=== PATIENT | female | born 1940 | race Caucasian/White ===

== ENCOUNTER 2017-04-03 12:46 | Inpatient (IN) | payer MEDICARE ==
[~2017-04-03] VITALS: Ht 152.4 cm; Wt 80.0 kg
[~2017-04-03 12:46] MED LIST changes: -ADJUSTABLE COMM1 MIS; -ASPI325T PO; -ATEN1TAB75 PO; -ENOX30P SQ; -ENOX40P SQ; -LASI20TA PO; -LORTA5 PO; -OMEP20TA39 PO; -POTA10TA2 PO; -TAB-TAB PO; -VITD400 PO; -Z.0.COMMODE-3:1; -Z.0.WALKERFRONT
--- NOTE | 2017-04-10 15:55 | MH ---
cc: KRISTEN CORONA M.D. DATE OF ADMISSION: 04/11/2017 DATE OF 1940 ADMISSION DIAGNOSIS Loose left total hip. CHIEF COMPLAINT Severe pain left hip. PROPOSED SURGERY: Revision total hip replacement arthroplasty with removal and replacement of the femoral implant, probably change of the acetabular insert. There is possibility of insertion of a PROSTALAC implant if infection is found. ALLERGIES PENICILLIN. ATIVAN CLINDAMYCIN PERSONAL HISTORY She is retired. She is nonsmoker. PAST HISTORY History of high blood pressure, anxiety, arthritis and head trauma. MEDICATIONS: 1. Allopurinol 2. Losartan 3. Atenolol 4. Fenofibrate. 5. Furosemide. 6. Potassium. 7. Tramadol. 8. Vitamins and supplements. PAST SURGERIES Cholecystectomy. Total left hip replacement arthroplasty 2013 at [facility]. PRESENT HISTORY. She has had increasing pain left hip ever since the primary surgery in 2013. There was a complication at that time of a perioperative femoral fracture which is fixated by two cables. The patient is followed by a surgeon, Dr. Jain, and was told everything looks okay on x-rays and tests and, therefore, she sought medical attention by the undersigned. When she was evaluated on March 15, 2017, it was obvious that she has a loose femoral stem contributing to the pain and, therefore, further tests in the form of a CT scan was ordered which confirms this finding. LABORATORY STUDIES: Show that she has a normal sedimentation rate but mildly increased CRP. The patient is now being admitted for revision of total hip replacement arthroplasty for revision of the femoral stem, possible changes of the acetabular liner to a 10 degree liner and possible introduction of cemented PROSTALAC if there is obvious significant infection. Alternative of one-stage exchange if it seems like a low grade infection, followed by IV antibiotics for several weeks also discussed. Potential problems such as infection, dislocation, fractures, phlebitis, blood clot blood loss, limb length discrepancy and possible persistent pain and discomfort discussed. Informed consent has been obtained. No guarantees made. It has been explained to her and her clearly that this surgery will be done through a lateral incision, a posterior approach. Previous surgery was done through an anterior approach. The patient is significantly overweight with a large pendulous abdomen and also the difficulty of doing revision through an anterior approach discussed. Informed consent obtained. No guarantees made. PHYSICAL EXAMINATION: The physical examination reveals a very anxious, apprehensive white female who starts crying at the least amount of stress, who limps on the left leg. Range of motion left hip is painful. Left hip area, however, does not show any swelling, induration, redness or tenderness. There is a well-healed anterior scar. Left foot has normal pedal pulses and she moves her toes well. Head: Normocephalic. Pupils react to light. Face symmetrical. Heart: Regular rhythm, no murmurs. Lungs: Clear to auscultation. Abdomen: Soft, supple. Preoperative laboratory workup is satisfactory. Medical clearance has been obtained. Preoperative instructions including infection, prevention protocol with Hibiclens wash, etc., and instructions in medications were all given. MD KING Claire/PONCE /1:46 PM /3:24 PM
[2017-04-11 09:00] VITALS: BP 172/73; PULSE 49; RESP 16; TEMP 98.3; O2SAT 95
[2017-04-11] MEDS ORDERED: LACTATED RINGER'S 1000 ML IV PRN (09:00)
[2017-04-11] MEDS ORDERED: POVIDONE IODINE 5% (ANTISEPSIS KIT) 4 APPLICATIONS EACH NARE PRN (09:00)
[2017-04-11] MEDS ORDERED: INSULIN HUMAN REGULAR 1,000 UNITS/10 ML VIAL SQ PRN (09:00)
[2017-04-11] MEDS ORDERED: METOPROLOL TARTRATE 25 MG TAB PO PRN (09:00)
[2017-04-11] MEDS ORDERED: CHLORHEXIDINE GLUCONATE 2 % 1 PACK (2 CLOTHS) TOPICAL PRN (09:00)
[2017-04-11] MEDS ORDERED: TRANEXAMIC ACID IV SCH ×3 (09:00→15:00)
[2017-04-11] MEDS ORDERED: POVIDONE IODINE 7.5% SCRUB 118 ML BOTTLE TOPICAL SCH (09:00)
[2017-04-11] MEDS ORDERED: SODIUM CHLORID 0.9% 500 ML IV PRN (09:00)
[2017-04-11] MEDS ORDERED: SODIUM CHLORIDE 0.9% IV SCH ×3 (09:00→15:00)
[2017-04-11] MEDS ORDERED: ROPIVACAINE PERI-ARTICULAR INJECTION. P-ARTICULR SCH ×5 (09:00)
[2017-04-11] MEDS ORDERED: VITD400 PO (09:24)
[2017-04-11] MEDS ORDERED: POTA10TA2 PO (09:24)
[2017-04-11] MEDS ORDERED: GENTAMICIN SULFATE 80 MG/2 ML VIAL ONE (09:52)
[2017-04-11] MEDS ORDERED: MIDAZOLAM HCL 2 MG/2 ML VIAL ONE (11:07)
[2017-04-11] MEDS ORDERED: FAMOTIDINE 20 MG/2 ML VIAL ONE (11:08)
[2017-04-11] MEDS ORDERED: VANCOMYCIN HCL 1000 MG VIAL ONE (11:17)
[2017-04-11] MEDS ORDERED: ceFAZolin 2 GM PREMIX 50 ML ONE (11:50)
[2017-04-11] MEDS ORDERED: SODIUM CHLOR 0.9% 250 ML INJ 250 ML IV ONE (12:00)
[2017-04-11] MEDS ORDERED: ePHEDrine/NS 25 MG/5 ML SYR IV ONE (12:00)
[2017-04-11] MEDS ORDERED: PROPOFOL 200 MG/20 ML AMP IV ONE (12:00)
[2017-04-11] MEDS ORDERED: PHENYLEPH/NS 1000 MCG/10 ML SYR IV ONE (12:00)
[2017-04-11] MEDS ORDERED: NORMOSOL R INJ 2,000 ML IV ONE (12:00)
[2017-04-11] MEDS ORDERED: LACTATED RINGER'S 1000 ML INJ 1,000 ML IV ONE (12:00)
[2017-04-11] MEDS ORDERED: NEOSTIGMINE 3 MG/3 ML SYR IV ONE (12:00)
[2017-04-11] MEDS ORDERED: ONDANSETRON HCL 4 MG/2 ML VIAL IV PUSH ONE (12:00)
[2017-04-11] MEDS ORDERED: ACETAMINOPHEN 1000 MG/100 ML VIAL IV ONE (14:24)
[2017-04-11] MEDS ORDERED: Post-op Orders (for Pharmacy) MISC XX ONE (15:00)
[2017-04-11] MEDS ORDERED: ACETAMINOPHEN/HYDROcodone 325 MG/5 MG TAB PO PRN ×2 (15:00)
[2017-04-11] MEDS ORDERED: diphenhydrAMINE HCL 50 MG/ML VIAL IV PRN (15:00)
[2017-04-11] MEDS ORDERED: MORPHINE SULFATE 30 MG/30 ML PCA IV SCH (15:00)
[2017-04-11] MEDS ORDERED: NALOXONE HCL 0.4 MG/ML AMP IV PRN (15:00)
[2017-04-11] MEDS ORDERED: TEMAZEPAM 15 MG CAP PO PRN (15:00)
[2017-04-11] MEDS ORDERED: ONDANSETRON HCL 4 MG/2 ML VIAL IVP PRN (15:00)
[2017-04-11] MEDS ORDERED: SODIUM CHLORIDE 0.9% FLUSH 5 ML FLUSH IVF PRN (15:00)
[2017-04-11] MEDS ORDERED: ENOX30P SQ (15:03)
[2017-04-11] MEDS ORDERED: HYDR-3516 PO (15:03)
--- NOTE | 2017-04-11 15:05 | HHI.FF ---
Face to Face Verification Diagnosis: (1) Status post left hip replacement (2) HTN (hypertension) (3) Hx of breast cancer (4) GERD (gastroesophageal reflux disease) Physical Therapy Gait training Hip: Total hip, Protocol: Left, Abduction pillow while in bed Left LE Weight Bearing: WB as tolerated Nursing Nursing: Jayashree teaching, Dressing changes Dressing Changes: Daily dressing change, Coverderm/Primapore I have seen patient Mahsa Day on 04/11/17. My clinical findings support the need for the requested home health care services because: Limited ability to care for self Injectable med education/admin I certify that my clinical findings support that this patient is homebound because: Unsafe to leave home unassisted Unable to use public transportation Fortino Gutiérrez MD Apr 11, 2017 15:05
[2017-04-11] MEDS ORDERED: ADJUSTABLE COMM1 MIS (15:08)
[2017-04-11] MEDS ORDERED: DO NOT ADM ANY ANTICOAGULANT DRUGS PRN (15:34)
[2017-04-11] MEDS: SODIUM CHLOR 0.9% 1000 ML INJ 1,000 ML IV SCH (15:45)
[2017-04-11] MEDS ORDERED: fentaNYL CITRATE 250 MCG/5 ML AMP ONE (15:47)
--- NOTE | 2017-04-11 15:49 | RADRPT ---
EXAM DATE/TIME: 04/11/2017 14:24 [facility] COMPARISON: No previous studies available for comparison. INDICATIONS : Total left hip revision. MEDICAL HISTORY : None. SURGICAL HISTORY : Total left hip replacement. ENCOUNTER: Initial ACUITY: 1 day PAIN SCORE: Non-responsive. LOCATION: Left hip. FINDINGS: The patient is status post a total hip arthroplasty with a bipolar prosthesis. Prosthesis is well-sea jacquelin. Alignment is anatomic. A fracture is not appreciated. CONCLUSION: Anatomic alignment. Delbert Valentine MD FACR Board Certified Radiologist. This report was verified electronically.
--- NOTE | 2017-04-11 16:03 | MP ---
cc: KRISTEN GUTIÉRREZ DATE OF OPERATION 04/11/2017 PREOPERATIVE DIAGNOSIS Loose total hip (femoral stem). POSTOPERATIVE DIAGNOSIS Loose total hip (femoral stem). OPERATIVE PROCEDURE Revision total hip replacement arthroplasty, left hip using the following components: We changed the acetabular insert from a flat face to a 10 degrees +4. Femoral implant change from a 8.5 Corail Stem to a 10 mm porous coated Erica stem. Head: 32 mm diameter ceramic, -[address] Gutiérrez ANESTHESIA General. TECHNIQUE After induction of general anesthesia the patient placed in left lateral position supported Biomet hip positioners. Care had to be taken with this patient because of a large amount of fat around her abdomen. Lateral position was obtained. Bony promises were protected. Left hip and lower extremity thoroughly prepped with alcohol and ChloraPrep and draped in routine fashion. Standard lateral incision was made, centered on the greater trochanter, deepened through the thick subcutaneous tissue. Fascia incised in line of skin incision. Charnley retractor introduced. Dissection carried out posteriorly and hip was internally rotated and the scarred external rotators of the capsule incised in an inverted L-shaped fashion with a vertical limb of the L along the intertrochanteric line and this tissue held with #2 Vicryl sutures. There was only serous fluid in the joint. Tissue obtained from inside the joint was sent, two for frozen section and two for microbiology including Gram stain and culture aerobic, anaerobic, AFB and fungal. Both the Gram stain and the frozen section did not show indication of any acute inflammation. No bacteria on the Gram stain. Debridement was carried out. A Steinmann pin was introduced in the bone above the acetabulum with the pin vertical to the floor of the operating table and then bent at 90 degrees to measure length and offset on a predetermined ketty on the greater trochanter. Hip was dislocated now. Debridement carried around the femoral neck. The femur was obviously loose and it was extracted without difficulty after the head was removed. We now proceeded to look at the acetabulum and the debridement carried out there to get good visualization. Being that we now doing a posterior approach and she had previous anterior approach and probably not have too much anteversion of the femoral component, I decided to put a 10 degrees +4 polyethylene insert with the buildup superior-posterior. This was impacted in place without difficulty. Attention were now directed to the femur where the femoral canal was sounded and we can see that there is a pedestal of hard bone at the area where the implant ended and great care had to be taken to open this area because a standard canal openers will not work here. The intramedullary drills from the Lesley set was then used to open up this scaffolding and then a canal finder was placed but the canal is still quite tight. A ball-tipped guidewire was then introduced into the supracondylar area. Fluoroscopic imaging was carried out in AP and lateral views which showed the guidewire to be well contained in the medullary canal. Sequential reaming was now carried out with flexible reamers starting with 8 mm. Even at 10 mm started to hear cortical chatter. We proceeded to 10.5 mm but it seemed too dangerous to try and ream it beyond that. Therefore, we have to rule out using the modular revision systems of either company ([employer] and [employer]). We therefore have to use a one-piece system. I initially tried to broach the proximal stem for the Corail revision stem. A 10 mm broach went in nicely but the 10 mm trial had difficulty getting in because of the cylindrical, ___ distal stem. Therefore, it was decided to use the Erica system of the [employer] company and we broached to 10 mm starting with 8 and it was nice and tight with about 10 degrees anteversion. Trial reduction was now carried out with a -6 neck. There is excellent stability but we need more leg length, offset is good. Hip was dislocated and impaction bone grafting of the femoral canal was carried out with cancellus chips with the use of a broach and then the 10 mm Erica stem was placed impacted in place getting excellent fit. The stem was about 6-7 mm shy of bottoming out. We did a trial reduction with a -6 head and there is good tightness but there still seemed to be some shortening of the leg compared to measurement prior to dislocation. But I pulled out the removed stem and head from the back table and compared the lengths and it appears just about identical. Therefore hip was dislocated and we put a -3 ceramic head 32 mm diameter and then reduced the hip getting good tightness, excellent stability and satisfactory leg lengths. The wound was irrigated with saline solution followed by reattachment of the posterior capsule and short external rotators to posterior margin of greater trochanter with #2 FiberWire. Fascia closed with #2 quill, subcutaneous tissue with 2-0 Vicryl and skin with 3-0 subcuticular quill and Steri-Strips. Dressing applied with Xeroform, 4x4s, ABD, Medipore tape. Abduction pillow applied. The patient transferred to recovery room in satisfactory condition. A mixture of ropivacaine, clonidine, epinephrine and Toradol was injected into the muscular tissue and subcutaneous tissue on either side of the incision for pain relief. The patient tolerated the procedure well. TRANSFUSIONS AND COMPLICATIONS None. POSTOPERATIVE CONDITION Satisfactory. PROGNOSIS Guarded to good. MD KING Claire/ANGELLA /3:12 PM /3:41 PM
[2017-04-11] MEDS ORDERED: *morphine SULFATE 8 MG/ML PERIprocedure ONLY ONE ×3 (16:26→16:58)
[2017-04-11] MEDS ORDERED: KETOROLAC TROMETHAMINE 30 MG/ML (IVP) VIAL ONE (16:37)
--- NOTE | 2017-04-11 16:53 | RADRPT ---
EXAM DATE/TIME: 04/11/2017 15:43 [facility] COMPARISON: HIP LEFT AP ONLY WO AP PELVIS, April 11, 2017, 14:24. INDICATIONS : Status post left hip ORIF. MEDICAL HISTORY : None. SURGICAL HISTORY : None. ENCOUNTER: Subsequent ACUITY: 1 day PAIN SCORE: Non-responsive. LOCATION: Left Hip FINDINGS: The patient is post left hip arthroplasty. Orthopedic hardware is in excellent position. Alignment is good. CONCLUSION: 1. Arthroplasty hardware in good position. Sterling Valentine MD on April 11, 2017 at 16:51 Board Certified Radiologist. This report was verified electronically.
[2017-04-11] MEDS: ceFAZolin 2 GM PREMIX 50 ML IV SCH (17:45)
[2017-04-11 20:00] VITALS: BP 147/79; PULSE 75; RESP 20; TEMP 96.1; O2SAT 98
[2017-04-11 20:24] VITALS: O2SAT 98
[2017-04-11] MEDS: KETOROLAC TROMETHAMINE 30 MG/ML (IVP) VIAL IVP SCH (20:59)
[2017-04-11] MEDS: SODIUM CHLORIDE 0.9% FLUSH 5 ML FLUSH IVF SCH (21:00)
[2017-04-11] MEDS: PCA - TOTAL MG MORPHINE DELIVERED PER SHIFT SCH (22:00)
[2017-04-12] VITALS (7 sets, daily range): BP systolic 125–159; BP diastolic 48–68; PULSE 61–89; RESP 16–22; TEMP 96.1–99; O2SAT 95–99
[2017-04-12] MEDS ORDERED: VANCOMYCIN INJ 1 GM in SODIUM CHLOR 0.9% 250 ML INJ 250 ML IV SCH (01:00)
[2017-04-12] MEDS: SODIUM CHLOR 0.9% 1000 ML INJ 1,000 ML IV SCH ×4 (01:06→21:52)
[2017-04-12] MEDS: ACETAMINOPHEN 1000 MG/100 ML VIAL IV SCH ×2 (02:18→15:14)
[2017-04-12] MEDS: ceFAZolin 2 GM PREMIX 50 ML IV SCH (05:39)
[2017-04-12] MEDS: KETOROLAC TROMETHAMINE 30 MG/ML (IVP) VIAL IVP SCH ×3 (05:39→21:51)
[2017-04-12] MEDS: PCA - TOTAL MG MORPHINE DELIVERED PER SHIFT SCH ×3 (05:39→21:52)
[2017-04-12 06:16] LABS: HEMATOCRIT 31.1 % (35.0-46.0); REVIEW FLAG FINAL
[2017-04-12 06:41] LABS: BICARBONATE 25.5 MEQ/L (21.0-32.0); POTASSIUM 4.2 MEQ/L (3.5-5.1)
--- NOTE | 2017-04-12 07:36 | PD.ORT.PN ---
Subjective Post Op Day #: 1 Pain Scale: 3 Subjective Remarks good Objective Vitals Last 72 hours Impressions Hip X-Ray 04/11/17 0000 Signed Impressions: Service Date/Time: Tuesday, April 11, 2017 15:43 - CONCLUSION: 1. Arthroplasty hardware in good position. Sterling Valentine MD Hip X-Ray 04/11/17 0000 Signed Impressions: Service Date/Time: Tuesday, April 11, 2017 14:24 - CONCLUSION: Anatomic alignment. Delbert Valentine MD Vital Signs Date Time Temp Pulse Resp B/P Pulse Ox O2 Delivery O2 Flow Rate FiO2 04/12/17 05:39 17 04/12/17 04:00 96.8 61 18 152/60 99 04/12/17 00:00 96.1 71 20 157/64 99 04/11/17 22:00 1 04/11/17 20:24 98 Nasal Cannula 2.00 04/11/17 20:00 96.1 75 20 147/79 98 04/11/17 19:44 18 04/11/17 17:30 97.6 77 15 157/72 99 Nasal Cannula 3 04/11/17 17:00 79 16 153/71 99 Nasal Cannula 3 04/11/17 16:30 73 15 148/75 97 Nasal Cannula 3 04/11/17 16:15 78 15 149/72 97 Nasal Cannula 3 04/11/17 16:00 75 16 146/70 97 Nasal Cannula 3 04/11/17 15:45 71 15 141/65 96 Nasal Cannula 3 04/11/17 15:36 97.7 76 15 117/56 95 Nasal Cannula 3 04/11/17 09:00 98.3 49 16 172/73 95 I/O 04/11/17 04/11/17 04/11/17 04/12/17 04/12/17 04/12/17 07:00 15:00 23:00 07:00 15:00 23:00 Intake Total 4264 ml 1104 ml Output Total 1775 ml 300 ml Balance 2489 ml 804 ml Intake Oral 780 ml 240 ml IV Total 884 ml 864 ml Other 2600 ml Output Urine Total 1275 ml 300 ml Estimated Blood Loss 500 ml # Bowel Movements 0 0 Result Diagram: 04/12/17 0536 04/12/17 0536 Objective Remarks A,A,and O Cheerful. Moves warm toes well. In bed ordering brekfast. Dressings dry Assessment & Plan Ortho Post Op Day #: 1 Problem List: Assessment and Plan doing well one day post op revision HARSH left DC sat with [facility] Fortino Gutiérrez MD Apr 12, 2017 07:36
[2017-04-12] MEDS: SODIUM CHLORIDE 0.9% FLUSH 5 ML FLUSH IVF SCH ×2 (09:00→21:00)
[2017-04-12] MEDS: CELECOXIB 200 MG CAP PO SCH (09:00)
[2017-04-12] MEDS: LOSARTAN 50 MG TAB PO SCH ×2 (13:00→21:52)
--- NOTE | 2017-04-12 13:14 | PD.CONS ---
HPI Service [facility] Hospitalists Consult Requested By Dr. Gutiérrez Reason for Consult Medical Mgmt Primary Care Physician Tommy Ralph MD Diagnoses: History of Present Illness Patient is a pleasant 76-year-old female with history of hypertension, chronic kidney disease stage II, history of breast cancer. Patient was admitted to the service of and underwent revision of left total hip arthroplasty. Medical team is now consult to assist with patient's stable, chronic medical issues. Review of Systems Constitutional: DENIES: Diaphoretic episodes, Fatigue, Fever, Weight gain, Weight loss, Chills, Dizziness, Change in appetite, Night Sweats Endocrine: DENIES: Heat/cold intolerance, Polydipsia, Polyuria, Polyphagia Eyes: DENIES: Blurred vision, Diplopia, Eye inflammation, Eye pain, Vision loss , Photosensitivity, Double Vision Ears, nose, mouth, throat: DENIES: Tinnitus, Hearing loss, Vertigo, Nasal discharge, Oral lesions, Throat pain, Hoarseness, Ear Pain, Running Nose, Epistaxis, Sinus Pain, Toothache, Odynophagia Respiratory: DENIES: Apneas, Cough, Snoring, Wheezing, Hemoptysis, Sputum production, Shortness of breath Cardiovascular: DENIES: Chest pain, Palpitations, Syncope, Dyspnea on Exertion , PND, Lower Extremity Edema, Orthopnea, Claudication Gastrointestinal: DENIES: Abdominal pain, Black stools, Bloody stools, BRB per rectum, Constipation, Diarrhea, GERD, Nausea, Reflux, Vomiting, Difficulty Swallowing, Anorexia Genitourinary: DENIES: Dysmenorrhea, Urinary frequency, Urinary incontinence, Urgency, Hematuria, Dysuria, Nocturia Musculoskeletal: COMPLAINS OF: Joint pain, DENIES: Muscle aches, Stiffness, Joint Swelling, Back pain, Neck pain Integumentary: DENIES: Abnormal pigmentation, Pruritus, Rash, Nail changes, Breast masses, Breast skin changes, Nipple discharge Hematologic/lymphatic: DENIES: Bruising, Lymphadenopathy Immunologic/allergic: DENIES: Eczema, Urticaria Neurologic: DENIES: Abnormal gait, Headache, Localized weakness, Paresthesias, Seizures, Speech Problems, Tremor, Poor Balance Psychiatric: DENIES: Anxiety, Confusion, Mood changes, Depression, Hallucinations, Agitation, Suicidal Ideation, Homicidal Ideation, Delusions, History of Bipolar, History of Schizophrenia Past Family Social History Past Medical History 1) hypertension 2) hyperlipidemia 3) chronic kidney disease, stage II 4) history of breast cancer - Non-infiltrating ductal carcinoma of the left breast - Lumpectomy in 1998 - Radiation therapy and tamoxifen 5) fatty liver disease 6) mitral bowel prolapse 7) thoracic spine compression fractures - T11 and T12 in 2004 - T7 in 2006 8) cervical disc disease 9) arachnoid cyst 10) lacunar CVA, noted on MRI 2005 11) colon polyp 12) diverticulosis 13) GERD 14) familial hypercalcemia 15) thyroid nodules 16) osteoarthritis 17) malignant melanoma of the back, 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 History of Axillary Lymphadenectomy 2. History of Biopsy Breast Percutaneous Needle Core 3. History of Cholecystectomy Laparoscopic 4. History of Closed Treatment Of Shoulder Dislocation With Manipulation 5. History of Complete Colonoscopy 6. History of Destruction Of Malignant Lesion 7. History of Intracaps Cataract Extract With Prosthesis Insert Right Eye 8. History of Left Breast Lumpectomy 9. History of Radiation Therapy 10. History of Shoulder Arthroscopy, Space Decompression And Acromioplasty 11. History of Surgery Of The Vitreous Of The Right Eye 12. History of Tonsillectomy With Adenoidectomy 13. History of Total Abdominal Hysterectomy Abdominal Approach 14. History of Total Hip Replacement Reported Medications Reported Meds & Active Scripts Active Hydrocodone-Acetaminophen 5-325 mg Tab 2 Tab PO Q4H PRN Lovenox Inj (Enoxaparin Sodium) 30 Mg/0.3 Ml Syr 30 Mg SQ Q24H Reported Vitamin D3 (Cholecalciferol) 400 Unit Tab 400 Units PO BID Potassium Chloride ER (Potassium Chloride) 10 Meq Tab 10 Meq PO DAILY Vitamin C (Ascorbic Acid) 1,000 Mg Tablet.er 1 Tab PO DAILY Selenium 100 Mcg Tablet 50 Mcg PO DAILY Vitamin B Complex (B-Complex Vitamins) 1 Tab 1 Tab PO DAILY Garlic 1 Mg Capsule 650 Mg PO DAILY Cranberry (Cranberry (Vaccinium Macrocarpon)) 425 Mg Cap 1 Cap PO DAILY Fish Oil 1000 mg (Canadian-3 Fatty Acids) 1 Cap Cap 2,000 Mg PO BID Tramadol (Tramadol HCl) 50 Mg Tab 50 Mg PO Q8H PRN Hydrocodone-Acetaminophen 5-325 mg Tab 1-2 Tab PO Q4H PRN Aspirin 81 (Aspirin) 81 Mg Tabdr 81 Mg PO DAILY Niacin 500 Mg Tab 1,000 Mg PO BID Multiple Vitamin 1 Tab 1 Tab PO DAILY Furosemide 20 Mg Tab 40 Mg PO DAILY Atenolol 100 Mg Tab 100 Mg PO DAILY Tricor (Fenofibrate) 145 Mg Tab 145 Mg PO DAILY Takw with food. Losartan (Losartan Potassium) 50 Mg Tab 50 Mg PO BID Allopurinol 100 Mg Tab 100 Mg PO BID Allergies: Coded Allergies: Zinc (Verified Allergy, Severe, RASH, 04/11/17) FROM ADHESIVE IN TAPE Clindamycin (Unverified Allergy, Intermediate, RASH; RESP DISTRESS, 04/11/17 ) Penicillin (Verified Allergy, Mild, RASH AND TONGUE SWELLING, 04/11/17) Ativan (Verified Adverse Reaction, Severe, RESTLESSNESS, CONFUSION,SEVERE PSYCHOSIS, 04/11/17) SEVERE PSYCHOSIS (07/28/14) Family History Noncontributory Social History - - Never a smoker - No alcohol use - No illicit street drugs Physical Exam Vital Signs Vital Signs Date Time Temp Pulse Resp B/P Pulse Ox O2 Delivery O2 Flow Rate FiO2 04/12/17 12:13 96 Nasal Cannula 2.00 04/12/17 08:00 98.3 68 18 159/48 96 04/12/17 05:39 17 04/12/17 04:00 96.8 61 18 152/60 99 04/12/17 00:00 96.1 71 20 157/64 99 04/11/17 22:00 1 04/11/17 20:24 98 Nasal Cannula 2.00 04/11/17 20:00 96.1 75 20 147/79 98 04/11/17 19:44 18 04/11/17 17:30 97.6 77 15 157/72 99 Nasal Cannula 3 04/11/17 17:00 79 16 153/71 99 Nasal Cannula 3 04/11/17 16:30 73 15 148/75 97 Nasal Cannula 3 04/11/17 16:15 78 15 149/72 97 Nasal Cannula 3 04/11/17 16:00 75 16 146/70 97 Nasal Cannula 3 04/11/17 15:45 71 15 141/65 96 Nasal Cannula 3 04/11/17 15:36 97.7 76 15 117/56 95 Nasal Cannula 3 Physical Exam GENERAL: This is a well-nourished, well-developed patient, in no apparent distress. SKIN: No rashes, ecchymoses or lesions. Cool and dry. HEAD: Atraumatic. Normocephalic. No temporal or scalp tenderness. EYES: Pupils equal round and reactive. Extraocular motions intact. No scleral icterus. No injection or drainage. ENT: Nose without bleeding, purulent drainage or septal hematoma. Throat without erythema, tonsillar hypertrophy or exudate. Uvula midline. Airway patent. NECK: Trachea midline. No JVD or lymphadenopathy. Supple, nontender, no meningeal signs. CARDIOVASCULAR: Regular rate and rhythm without murmurs, gallops, or rubs. RESPIRATORY: Clear to auscultation. Breath sounds equal bilaterally. No wheezes , rales, or rhonchi. GASTROINTESTINAL: Abdomen soft, non-tender, nondistended. No hepato-splenomegaly , or palpable masses. No guarding. MUSCULOSKELETAL: Extremities without clubbing, cyanosis, or edema. No joint tenderness, effusion, or edema noted. No calf tenderness. Negative Homans sign bilaterally. NEUROLOGICAL: Awake and alert. Cranial nerves II through XII intact. Motor and sensory grossly within normal limits. Five out of 5 muscle strength in all muscle groups. Normal speech. Laboratory Laboratory Tests Test 04/12/17 05:36 Hemoglobin 10.6 Hematocrit 31.1 Sodium Level 142 Potassium Level 4.2 Chloride Level 109 Carbon Dioxide Level 25.5 Anion Gap 8 Blood Urea Nitrogen 16 Creatinine 0.82 Estimat Glomerular Filtration 68 Rate Random Glucose 111 Calcium Level 8.3 Date/Time Procedure Status Source Growth 04/11/17 12:40 Gram Stain - Final Resulted Wound Hip 04/11/17 12:40 Wound Culture Resulted Wound Hip Pending 04/11/17 12:40 Fungal Smear Received Wound Hip Pending 04/11/17 12:40 Fungal Culture Received Wound Hip Pending 04/11/17 12:40 Acid Fast Stain Received Wound Hip Pending 04/11/17 12:40 Mycobacterial Culture Received Wound Hip Pending Result Diagram: 04/12/17 0536 04/12/17 0536 Imaging Last Impressions Hip X-Ray 04/11/17 0000 Signed Impressions: Service Date/Time: Sunday, April 11, 2017 15:43 - CONCLUSION: 1. Arthroplasty hardware in good position. Sterling Valentine MD Assessment and Plan Problem List: (1) Status post left hip replacement Status: Acute Plan: - Patient underwent revision of left total hip arthroplasty, performed by Dr. Gutiérrez 04/11/17 - Morphine [employer] - hydrocodone prn - Physical Therapy - lovenox - supportive care (2) HTN (hypertension) Status: Chronic Plan: - stable - continue losartan, atenolol (3) GERD (gastroesophageal reflux disease) Status: Acute (4) Hx of breast cancer Status: Acute Problem Qualifiers (1) HTN (hypertension): Qualified Code: I10 - Essential hypertension Mele Reynoso DO Apr 12, 2017 13:14
[2017-04-12] MEDS: FENOFIBRATE 145 MG TAB PO SCH (15:13)
[2017-04-12] MEDS: ATENOLOL 100 MG TAB PO SCH (15:14)
[2017-04-12] MEDS: ENOXAPARIN SODIUM 30 MG/0.3 ML SYRINGE SQ SCH (15:14)
[2017-04-12] MEDS: DOCUSATE SODIUM 100 MG CAP PO SCH (21:50)
[2017-04-12] MEDS: ALLOPURINOL 100 MG TAB PO SCH (21:51)
[2017-04-13] VITALS: BP 151/67; PULSE 69; RESP 22; TEMP 96.1; O2SAT 96
[2017-04-13] MEDS: ACETAMINOPHEN 1000 MG/100 ML VIAL IV SCH ×2 (03:01→14:00)
[2017-04-13 04:00] VITALS: BP 148/66; PULSE 65; RESP 18; TEMP 98.8; O2SAT 99
[2017-04-13] MEDS: KETOROLAC TROMETHAMINE 30 MG/ML (IVP) VIAL IVP SCH ×2 (05:00→13:00)
[2017-04-13] MEDS: PCA - TOTAL MG MORPHINE DELIVERED PER SHIFT SCH ×2 (06:00→14:00)
[2017-04-13] MEDS: SODIUM CHLOR 0.9% 1000 ML INJ 1,000 ML IV SCH ×2 (06:52→14:52)
[2017-04-13 08:00] VITALS: BP 147/72; PULSE 92; RESP 16; TEMP 98.9; O2SAT 96
[2017-04-13] MEDS: LOSARTAN 50 MG TAB PO SCH (08:51)
[2017-04-13] MEDS: ALLOPURINOL 100 MG TAB PO SCH (08:51)
[2017-04-13] MEDS: FENOFIBRATE 145 MG TAB PO SCH (08:51)
[2017-04-13] MEDS: ATENOLOL 100 MG TAB PO SCH (08:51)
[2017-04-13] MEDS: CELECOXIB 200 MG CAP PO SCH (08:52)
[2017-04-13] MEDS: DOCUSATE SODIUM 100 MG CAP PO SCH (08:53)
[2017-04-13] MEDS: SODIUM CHLORIDE 0.9% FLUSH 5 ML FLUSH IVF SCH (08:53)
[2017-04-13] MEDS ORDERED: POTASSIUM CHLORIDE 10 MEQ CONTROLLED RELEASE TAB PO SCH (09:00)
[2017-04-13] MEDS ORDERED: ASPIRIN EC 81 MG TABEC PO SCH (09:00)
[2017-04-13] MEDS ORDERED: FUROSEMIDE 20 MG TAB PO SCH (09:00)
--- NOTE | 2017-04-13 09:59 | PD.ORT.PN ---
Subjective Post Op Day #: 2 Pain Scale: minimal Subjective Remarks good, want to go home today Distance Walked three times to bathroom and walked halls Objective Vitals Vital Signs Date Time Temp Pulse Resp B/P Pulse Ox O2 Delivery O2 Flow Rate FiO2 04/13/17 04:00 98.8 65 18 148/66 99 04/13/17 00:00 96.1 69 22 151/67 96 04/12/17 20:00 96.9 70 22 125/68 95 04/12/17 16:00 99.0 89 16 154/51 98 04/12/17 12:13 96 Nasal Cannula 2.00 04/12/17 12:00 97.7 71 18 144/57 98 I/O 04/12/17 04/12/17 04/12/17 04/13/17 04/13/17 04/13/17 07:00 15:00 23:00 07:00 15:00 23:00 Intake Total 1104 ml 600 ml 780 ml 240 ml Output Total 300 ml Balance 804 ml 600 ml 780 ml 240 ml Intake Oral 240 ml 600 ml 780 ml 240 ml IV Total 864 ml Output Urine Total 300 ml # Voids 2 3 3 # Bowel Movements 0 0 0 2 Result Diagram: 04/12/17 0536 04/12/17 0536 Objective Remarks A,A,and O Cheerful. Moves warm toes well. OOB in chair, comfortable. Dressings dry Assessment & Plan Ortho Post Op Day #: 2 Problem List: Assessment and Plan doing well one day post op revision HARSH left DC after PT this afternoon Rxs for narco and lovenox [facility] Has apptt to seeme already Fortino Gutiérrez MD Apr 13, 2017 09:59
[2017-04-13 12:00] VITALS: BP 152/68; PULSE 60; RESP 16; TEMP 97.7; O2SAT 99
[2017-04-13] MEDS: ENOXAPARIN SODIUM 30 MG/0.3 ML SYRINGE SQ SCH (15:17)
== END 2017-04-13 15:35 | disposition home health service (06) | DRG 468 ==
LOC: HSDI 04-11 08:24 → N06A 04-11 18:09
PROVIDERS: ADMIT Orthopaedic Surgery; ATTEND Orthopaedic Surgery
PROC: 0SPB0JZ Removal of Synthetic Substitute from Left Hip Joint, Open Approach (ICD-10-PCS; 2017-04-11)
PROC: 0SRB04A Replacement of Left Hip Joint with Ceramic on Polyethylene Synthetic Substitute, Uncemented, Open Approach (ICD-10-PCS; principal; 2017-04-11 11:31)
DX: T84.031A Mechanical loosening of internal left hip prosthetic joint, initial encounter (principal); K76.0 Fatty (change of) liver, not elsewhere classified; E66.3 Overweight; Z68.34 Body mass index [BMI] 34.0-34.9, adult; I12.9 Hypertensive chronic kidney disease with stage 1 through stage 4 chronic kidney disease, or unspecified chronic kidney disease; N18.2 Chronic kidney disease, stage 2 (mild); E78.5 Hyperlipidemia, unspecified; Z85.3 Personal history of malignant neoplasm of breast; Z92.3 Personal history of irradiation; Z86.73 Personal history of transient ischemic attack (TIA), and cerebral infarction without residual deficits; Z86.010 Personal history of colon polyps; Z85.820 Personal history of malignant melanoma of skin; K21.9 Gastro-esophageal reflux disease without esophagitis
CPT/HCPCS: 73501; 73502; 76000; 80048; 85014; 85018; 86850; 86900; 86901; 86920; 87015; 87070; 87102; 87116; 87205; 87206; 88305; 88331; 94150; C1776; J0131; J0171; J0690; J0735; J1580; J1650; J1885; J2250; J2270; J2370; J2405; J2710; J2795; J3010; J3370; J7030; J7050; J7120

== ENCOUNTER → 2017-04-03 | Outpatient (CLI) | payer MEDICARE ==
[~2017-04-03] MED LIST: ADJUSTABLE COMM1 MIS; ALLO100T PO; ASCO100016 PO; ASPI-110 PO; ASPI325T PO; ATEN100T PO; ATEN1TAB75 PO; CRAN425C2 PO; ENOX30P SQ; ENOX40P SQ; FENO50TA PO; FISH100020 PO; FURO20TA PO; GARL1CAP6 PO; HYDR-3516 PO; LASI20TA PO; LORTA5 PO; LOSA50TA PO; MULTTAB67 PO; NIAC500T5 PO; OMEP20TA39 PO; POTA10TA2 PO; TAB-TAB PO; TRAM50TA PO; VITATAB11 PO; VITD400 PO; Z.0.COMMODE-3:1; Z.0.WALKERFRONT; [UNRECOGNIZED DRUG - CODE] PO
[2017-04-03 09:22] LABS: BLOOD, URINE NEG (NEG); GLUCOSE,URINE NEG (NEG); KETONE, URINE NEG (NEG); NITRITE,URINE NEG (NEG); PH, URINE 6.5 (5.0-8.5); SQUAMOUS EPITHELIAL CELL URINE <1 /hpf (0-5); URINE COLOR LIGHT-YELLOW (YELLW/STRAW)
[2017-04-03 09:24] LABS: COMMENT (UR) CATH-CULT NOT IND; CULTURE IF INDICATED CATH CULTURE NOT IND
[2017-04-03 10:44] LABS: AUTOMATED NEUTROPHIL # 5.1 TH/MM3 (1.8-7.7); BASOPHIL # 0.1 TH/MM3 (0-0.2); BASOPHIL % 0.8 % (0.0-2.0); EOSINOPHIL # 0.2 TH/MM3 (0-0.4); EOSINOPHIL % 2.8 % (0.0-4.0); HEMATOCRIT 43.2 % (35.0-46.0); HEMO FLAGS DIFF FINAL; LYMPH % 26.6 % (9.0-44.0); LYMPHOCYTE # 2.1 TH/MM3 (1.0-4.8); MEAN CELL VOLUME 87.6 FL (80.0-100.0); MEAN CORPUSCULAR HEMOGLOBIN 27.5 PG (27.0-34.0); MEAN CORPUSCULAR HGB CONC 31.4 % (32.0-36.0); MONO % 6.1 % (0.0-8.0); NEUT % 63.7 % (16.0-70.0); PLATELET COUNT 292 TH/MM3 (150-450); RED BLOOD COUNT 4.93 MIL/MM3 (4.00-5.30); RED CELL DISTRIBUTION WIDTH 14.7 % (11.6-17.2)
[2017-04-03 10:47] LABS: APTT (PATIENT) 26.1 SEC (24.3-30.1)
[2017-04-03 11:08] LABS: ALKALINE PHOSPHATASE 49 U/L (45-117); ALT (GPT) 40 U/L (10-53); AST (GOT) 26 U/L (15-37); BLOOD UREA NITROGEN 25 MG/DL (7-18); GLOMERULAR FILTRATION RATE 67 ML/MIN (>89); GLUCOSE,FASTING 98 MG/DL (74-99); POTASSIUM 4.1 MEQ/L (3.5-5.1); SODIUM (NA) 142 MEQ/L (136-145); TOTAL BILIRUBIN ADULT 0.5 MG/DL (0.2-1.0)
[2017-04-03 11:09] LABS: ANION GAP 8 MEQ/L (5-15); BICARBONATE 30.9 MEQ/L (21.0-32.0); CHLORIDE 103 MEQ/L (98-107)
--- NOTE | 2017-04-03 11:15 | RADRPT ---
EXAM DATE/TIME: 04/03/2017 10:55 [facility] COMPARISON: No previous studies available for comparison. INDICATIONS : Evaluate for pneumonia, pneumothoraz, and communicable disease. Preop for left hip revision. MEDICAL HISTORY : None. SURGICAL HISTORY : Hip arthroplasty, left. ENCOUNTER: Initial ACUITY: 1 day PAIN SCORE: 0/10 LOCATION: Bilateral chest FINDINGS: PA and lateral views of the chest demonstrate the lungs to be symmetrically aerated without evidence of mass, infiltrate or effusion. The cardiomediastinal contours are unremarkable. There is an old h ealed right rib fracture of the right eighth rib. There are surgical clips in the left axillary area. There are degenerative changes of the thoracic spine. There is some chronic wedging of T12 with dege nerative changes. CONCLUSION: No acute intrathoracic disease. Kwan Owusu MD on April 03, 2017 at 11:12 Board Certified Radiologist. This report was verified electronically.
--- NOTE | 2017-04-03 11:59 | EKG ---
Date Performed: 04/03/2017 Time Performed: 08:40:01 PTAGE: 76 years EKG: SINUS BRADYCARDIA NONSPECIFIC ANTERIOR T WAVE ABNORMALITY BORDERLINE ECG PREVIOUS TRACING : 07/28/2009 08.57 No significant change from previous tracing noted. DOCTOR: Thor Kruger Interpretating Date/Time 04/03/2017 11:58:47
== END ==
LOC: CPRE 08:15
PROVIDERS: ATTEND Orthopaedic Surgery
DX: Z01.810 Encounter for preprocedural cardiovascular examination (principal); Z01.811 Encounter for preprocedural respiratory examination; Z01.812 Encounter for preprocedural laboratory examination; Z96.60 Presence of unspecified orthopedic joint implant; Z96.642 Presence of left artificial hip joint; M79.609 Pain in unspecified limb; R94.31 Abnormal electrocardiogram [ECG] [EKG]
CPT/HCPCS: 36415; 71020; 80053; 81001; 85025; 85610; 85730; 93005

== ENCOUNTER 2017-06-06 17:28 | Emergency (ER) | payer MEDICARE ==
[~2017-06-06] VITALS: Ht 152.4 cm; Wt 75.0 kg
[~2017-06-06 17:28] MED LIST changes: +ADJUSTABLE COMM1 MIS; -ASPI-110 PO; -CRAN425C2 PO; +ENOX30P SQ; -FISH100020 PO; -GARL1CAP6 PO; +POTA10TA2 PO; +VITD400 PO; -[UNRECOGNIZED DRUG - CODE] PO
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
[2017-06-06 17:45] VITALS: BP 178/71; PULSE 58; RESP 20; TEMP 98.3; O2SAT 98
[2017-06-06] MEDS ORDERED: FURO40TA PO (18:26)
--- NOTE | 2017-06-06 18:29 | RADRPT ---
EXAM DATE/TIME: 06/06/2017 17:55 [facility] COMPARISON: No previous studies available for comparison. INDICATIONS : Left hip pain post fall. MEDICAL HISTORY : None. SURGICAL HISTORY : Left hip replacement. ENCOUNTER: Initial ACUITY: 1 day PAIN SCORE: 10/10 LOCATION: Left hip. FINDINGS: There is superior and lateral dislocation of the femoral component of the left total hip arthroplasty . The acetabular cup remains in orthotopic position. The bony acetabulum is intact. The femoral co mponent which includes 2 proximal cerclage wires, appears intact. The bony pelvic ring is grossly in tact. Small supra-acetabular cyst on the right side. CONCLUSION: Superior dislocation of the left femoral component of total hip arthroplasty. Bruce Solomon MD on June 06, 2017 at 18:26 Board Certified Radiologist. This report was verified electronically.
[2017-06-06] MEDS ORDERED: PROPOFOL 200 MG/20 ML AMP IV ONE (18:30)
[2017-06-06 18:44] VITALS: O2SAT 100
[2017-06-06 18:45] VITALS: BP 128/56; PULSE 59; RESP 20; O2SAT 100
--- NOTE | 2017-06-06 19:43 | RADRPT ---
EXAM DATE/TIME: 06/06/2017 18:44 [facility] COMPARISON: HIP LEFT (AP&LAT 2/3VWS) W AP PELVIS, June 06, 2017, 17:55. HIP LEFT AP ONLY WO AP PELVIS, April, 14:24. INDICATIONS : Status post reduction left hip. MEDICAL HISTORY : None. SURGICAL HISTORY : Left hip ORIF. ENCOUNTER: Subsequent ACUITY: 1 day PAIN SCORE: 1/10 LOCATION: Left Hip FINDINGS: A single frontal view of the left hip is performed status post reduction of femoral component of arth roplasty. The alignment appears anatomic on this frontal view. There is a bony fragment superior to the tip of the greater trochanter which measures 1 cm, probably representing a displaced fragment fr om the trochanter. CONCLUSION: 1. Status post reduction of hip dislocation. 2. Bony fragment displaced in the soft tissues superior to the greater trochanter. Bruce Solomon MD on June 06, 2017 at 19:39 Board Certified Radiologist. This report was verified electronically.
== END 2017-06-06 20:06 | disposition home or self-care (01) ==
LOC: NEPE 17:28
DX: S73.005A Unspecified dislocation of left hip, initial encounter (principal); W07.XXXA Fall from chair, initial encounter; I10 Essential (primary) hypertension; K21.9 Gastro-esophageal reflux disease without esophagitis; Z85.820 Personal history of malignant melanoma of skin; Z96.642 Presence of left artificial hip joint; Z88.0 Allergy status to penicillin
CPT/HCPCS: 27265; 73501; 73502; 99152

== ENCOUNTER 2017-09-25 11:26 | Emergency (ER) | payer MEDICARE, OTHER ==
[~2017-09-25 11:26] MED LIST changes: -ADJUSTABLE COMM1 MIS; -ASCO100016 PO; +ASCO100029 PO; -ENOX30P SQ; -FURO20TA PO; +FURO40TA PO; -HYDR-3516 PO
[2017-09-25 11:31] VITALS: BP 166/70; PULSE 66; RESP 18; TEMP 98.8; O2SAT 96
[2017-09-25 11:36] VITALS: BP 166/70; PULSE 70; RESP 18; TEMP 98.8; O2SAT 96
[2017-09-25 11:39] VITALS: O2SAT 96
[2017-09-25] MEDS ORDERED: SODIUM CHLORIDE 0.9% FLUSH 10 ML FLUSH IVF PRN (11:45)
[2017-09-25 11:55] LABS: AUTOMATED NEUTROPHIL # 5.2 TH/MM3 (1.8-7.7); BASOPHIL # 0.1 TH/MM3 (0-0.2); BASOPHIL % 0.7 % (0.0-2.0); EOSINOPHIL # 0.2 TH/MM3 (0-0.4); EOSINOPHIL % 2.8 % (0.0-4.0); HEMATOCRIT 39.1 % (35.0-46.0); HEMO FLAGS DIFF FINAL; LYMPHOCYTE # 2.2 TH/MM3 (1.0-4.8); MEAN CELL VOLUME 86.9 FL (80.0-100.0); MEAN CORPUSCULAR HEMOGLOBIN 28.6 PG (27.0-34.0); MONO % 6.8 % (0.0-8.0); NEUT % 62.7 % (16.0-70.0); PLATELET COUNT 288 TH/MM3 (150-450); RED CELL DISTRIBUTION WIDTH 15.5 % (11.6-17.2); WHITE BLOOD COUNT 8.2 TH/MM3 (4.0-11.0)
[2017-09-25 12:07] LABS: BICARBONATE 26.7 MEQ/L (21.0-32.0); POTASSIUM 3.9 MEQ/L (3.5-5.1)
--- NOTE | 2017-09-25 12:10 | RADRPT ---
EXAM DATE/TIME: 09/25/2017 11:55 [facility] COMPARISON: HIP LEFT (AP&LAT 2/3VWS) W AP PELVIS, June 06, 2017, 17:55. INDICATIONS : Fell today, pain left hip, evaluate for dislocation MEDICAL HISTORY : None. SURGICAL HISTORY : total left hip, left hip revision ENCOUNTER: Initial ACUITY: 1 day PAIN SCORE: 10/10 LOCATION: Left hip FINDINGS: Examination of the left hip was performed with AP Pelvis. The patient has had a total hip arthroplast y which has again dislocated superiorly from the acetabulum. There is no evidence of fracture, lytic or blastic lesion. CONCLUSION: The arthroplasty head is superiorly dislocated similar to the occurrence in June. Cliff Soler MD on September 25, 2017 at 12:08 Board Certified Radiologist. This report was verified electronically.
[2017-09-25] MEDS ORDERED: PROPOFOL 200 MG/20 ML AMP IV ONE (12:15)
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
[2017-09-25 13:15] VITALS: O2SAT 100
[2017-09-25 13:20] VITALS: BP 149/65; PULSE 58; RESP 18; O2SAT 99
--- NOTE | 2017-09-25 13:47 | RADRPT ---
EXAM DATE/TIME: 09/25/2017 12:21 [facility] COMPARISON: No previous studies available for comparison. INDICATIONS : Post reduction left hip MEDICAL HISTORY : hip dislocation SURGICAL HISTORY : hip replacement with revisions ENCOUNTER: Subsequent ACUITY: 1 day PAIN SCORE: 5/10 LOCATION: Left hip FINDINGS: A single frontal view of the pelvis demonstrates no evidence of fracture. The left total hip arthropl asty is in good position The bony pelvic ring is intact. Bony mineralization is normal. The soft t issues are intact. CONCLUSION: Unremarkable examination of the pelvis. The left hip total arthroplasty is now relocated. Cliff Soler MD on September 25, 2017 at 13:45 Board Certified Radiologist. This report was verified electronically.
--- NOTE | 2017-09-25 14:51 | PD ---
Physical Exam Date Seen by Provider: Sep 25, 2017 Narrative Was called over by Dr. Roberts to assist with the hip dislocation reduction well she did the conscious sedation. Please refer to my procedure note. Patient tolerated it well. Data Data Last Documented VS Orders Orders Complete Blood Count With Diff (09/25/17 11:37) Hip, Uni(Ap&Lat) W Ap Pelvis (09/25/17 11:37) Iv Access Insert/Monitor (09/25/17 11:37) Oximetry (09/25/17 11:37) Ecg Monitoring (09/25/17 11:37) Sodium Chloride 0.9% Flush (Ns Flush) (09/25/17 11:45) Basic Metabolic Panel (Bmp) (09/25/17 11:37) Propofol 200 Mg/20 Ml Inj (Diprivan 200 (09/25/17 12:15) Pelvis, Ap Only (Routine) (09/25/17 ) ^ Knee Immobilizer (09/25/17 13:23) Ed Discharge Order (09/25/17 14:22) Labs Laboratory Tests Test 09/25/17 11:40 White Blood Count 8.2 TH/MM3 Red Blood Count 4.50 MIL/MM3 Hemoglobin 12.9 GM/DL Hematocrit 39.1 % Mean Corpuscular Volume 86.9 FL Mean Corpuscular Hemoglobin 28.6 PG Mean Corpuscular Hemoglobin Concent 33.0 % Red Cell Distribution Width 15.5 % Platelet Count 288 TH/MM3 Mean Platelet Volume 8.2 FL Neutrophils (%) (Auto) 62.7 % Lymphocytes (%) (Auto) 27.0 % Monocytes (%) (Auto) 6.8 % Eosinophils (%) (Auto) 2.8 % Basophils (%) (Auto) 0.7 % Neutrophils # (Auto) 5.2 TH/MM3 Lymphocytes # (Auto) 2.2 TH/MM3 Monocytes # (Auto) 0.6 TH/MM3 Eosinophils # (Auto) 0.2 TH/MM3 Basophils # (Auto) 0.1 TH/MM3 CBC Comment DIFF FINAL Differential Comment Blood Urea Nitrogen 36 MG/DL Creatinine 0.99 MG/DL Random Glucose 116 MG/DL Calcium Level 10.6 MG/DL Sodium Level 138 MEQ/L Potassium Level 3.9 MEQ/L Chloride Level 103 MEQ/L Carbon Dioxide Level 26.7 MEQ/L Anion Gap 8 MEQ/L Estimat Glomerular Filtration Rate 54 ML/MIN [facility] Medical Record Reviewed: Yes Supervised Visit with ALAINA: No Procedures Procedure Narrative Hip dislocation reduction: The left hip was superiorly dislocated. This was reduced by Capt. Hu's technique after the patient was adequately sedated with propofol. A satisfactory clunk was heard. Both legs were equal and at this point. A knee immobilizer was applied. Patient tolerated this part of the procedure well. Diagnosis Primary Impression: Hip dislocation, left Qualified Codes: S73.005A - Unspecified dislocation of left hip, initial encounter Referrals: Fortino Gutiérrez MD call for appointment this week Tommy Ralph MD (PCP) Patient Instructions: General Instructions, Moderate Sedation (ED) Departure Forms: Tests/Procedures Additional Instruction: tylenol as needed, posterior hip precautions Disposition: 01 DISCHARGE HOME Condition: Stable Manuel Russell MD Sep 25, 2017 14:51
[2017-09-25 15:00] VITALS: BP 142/72
[2017-10-01] MEDS ORDERED: GARL100T PO ×2 (15:08)
[2017-10-01] MEDS ORDERED: SELE200T17 PO ×2 (15:08)
[2017-10-01] MEDS ORDERED: FISH100020 PO ×2 (15:08)
[2017-10-01] MEDS ORDERED: ASPI81TA23 PO ×2 (15:08)
[2017-10-01] MEDS ORDERED: CRANCAP2 PO ×2 (15:08)
== END 2017-09-25 15:22 | disposition home or self-care (01) ==
LOC: NEPE 11:26
DX: S73.005A Unspecified dislocation of left hip, initial encounter (principal); X50.1XXA Overexertion from prolonged static or awkward postures, initial encounter; Y92.000 Kitchen of unspecified non-institutional (private) residence as the place of occurrence of the external cause; F41.9 Anxiety disorder, unspecified; K21.9 Gastro-esophageal reflux disease without esophagitis; I10 Essential (primary) hypertension; M10.9 Gout, unspecified; Z79.899 Other long term (current) drug therapy; Z88.0 Allergy status to penicillin
CPT/HCPCS: 27265; 72170; 73502; 80048; 85025; 99152

== ENCOUNTER → 2017-10-01 | Outpatient (CLI) | payer MEDICARE, OTHER ==
[~2017-10-01] MED LIST changes: +ASPI81TA23 PO; +CRANCAP2 PO; +ENOX30P SQ; +FISH100020 PO; +GARL100T PO; +SELE200T17 PO
[2017-10-01 15:37] LABS: AUTOMATED NEUTROPHIL # 6.4 TH/MM3 (1.8-7.7); BASOPHIL % 0.5 % (0.0-2.0); EOSINOPHIL # 0.2 TH/MM3 (0-0.4); EOSINOPHIL % 2.3 % (0.0-4.0); HEMATOCRIT 39.4 % (35.0-46.0); HEMO FLAGS DIFF FINAL; LYMPH % 25.5 % (9.0-44.0); LYMPHOCYTE # 2.4 TH/MM3 (1.0-4.8); MEAN CELL VOLUME 86.3 FL (80.0-100.0); MEAN CORPUSCULAR HEMOGLOBIN 28.2 PG (27.0-34.0); MEAN CORPUSCULAR HGB CONC 32.7 % (32.0-36.0); MONO % 3.5 % (0.0-8.0); NEUT % 68.2 % (16.0-70.0); PLATELET COUNT 337 TH/MM3 (150-450); RED BLOOD COUNT 4.56 MIL/MM3 (4.00-5.30); RED CELL DISTRIBUTION WIDTH 15.7 % (11.6-17.2); WHITE BLOOD COUNT 9.4 TH/MM3 (4.0-11.0)
[2017-10-01 15:55] LABS: BICARBONATE 32.4 MEQ/L (21.0-32.0); POTASSIUM 3.9 MEQ/L (3.5-5.1)
[2017-10-01 16:08] LABS: WESTERGREN SEDIMENTATION RATE 14 mm/hr (0-30)
[2017-10-01 16:36] LABS: BLOOD, URINE NEG (NEG); COMMENT (UR) CATH-CULT NOT IND; CULTURE IF INDICATED CATH CULTURE NOT IND; GLUCOSE,URINE NEG (NEG); KETONE, URINE NEG (NEG); NITRITE,URINE NEG (NEG); PH, URINE 5.5 (5.0-8.5); URINE COLOR YELLOW (YELLW/STRAW)
--- NOTE | 2017-10-02 15:36 | EKG ---
Date Performed: 10/01/2017 Time Performed: 15:29:47 PTAGE: 76 years EKG: Sinus rhythm INCOMPLETE RIGHT BUNDLE BRANCH BLOCK ST DEVIATION AND MODERATE T-WAVE ABNORMALITY, CONSIDER ANTERIOR ISCHEMIA When compared to previous tracing, the patient is no longer Bradycardic. ABNORMAL ECG PREVIOUS TRACING : 04/03/2017 08.40.01 DOCTOR: Tawny Jon Interpretating Date/Time 10/02/2017 15:35:10
== END ==
LOC: CPRE 14:11
PROVIDERS: ATTEND Orthopaedic Surgery
DX: Z01.810 Encounter for preprocedural cardiovascular examination (principal); Z01.812 Encounter for preprocedural laboratory examination; R94.31 Abnormal electrocardiogram [ECG] [EKG]
CPT/HCPCS: 36415; 80048; 81001; 85025; 85652; 86140; 86850; 86900; 86901; 93005

== ENCOUNTER 2017-10-03 10:41 | Inpatient (IN) | payer MEDICARE, OTHER ==
--- NOTE | 2017-10-02 18:54 | MH ---
cc: KRISTEN CORONA DATE OF ADMISSION 10/03/2017 ADMISSION DIAGNOSIS 1. Instability left total hip. 2. Recurrent dislocation left total hip. 3. Six post revision hip replacement for a loose femoral component. PAST MEDICAL HISTORY 1. High blood pressure 2. Anxiety, 3. Arthritis 4. Head trauma. SOCIAL HISTORY She is retired. She does not smoke. ALLERGIES PENICILLIN ATIVAN CLINDAMYCIN MEDICATIONS 1. Allopurinol 2. Losartan 3. Atenolol. 4. Fenofibrate. 5. Furosemide. 6. Potassium. 7. Tramadol. 8. Vitamins and supplements. PAST SURGICAL HISTORY 1. Total hip replacement arthroplasty done by Dr. Jain in 2013 through an anterior approach. She sustained a perioperative femoral fracture necessitating fixation with cerclage wires. The patient continued to have pain postoperatively and she saw me for the first time in February or March of 2017. All the tests and x-rays were reviewed and it was concluded that there was a loose femoral component and indeed it was loose and was revised on 04/11/2017 with a Biomet Erica stem with bone allograft. The liner of the cup was changed to a 10 degree liner to prevent posterior dislocation since previous surgery done through the anterior approach. The patient complained of clicking in the hip and feeling of instability on and off. In June of this year, she sustained a dislocation of the hip which was reduced in the emergency room. The patient was instructed on prevention of dislocation and exercises, but she has continued to use a walker and sometimes cane and in a deconditioned status physically has not walked much or exercised much. She states about 2 weeks ago she fell when she got up from the toilet and got herself up and went to bed and did not feel any pain at all in this left hip but felt pain in the lower back and coccyx. A week later she was standing at the kitchen sink (this was a week ago) and turned to the refrigerator and the hip gave out and she fell sustaining dislocation and again went to [facility] emergency room where they reduced it and told her to have outpatient evaluation. It is apparent that she has instability of this hip. It is difficult to tell if it is coming out anteriorly or posteriorly because it is basically ending up superiorly. There is no malalignment of any of the components. This certainly could be and mostly likely to be impingement of the 10 degree liner on the femoral neck resulting in either anterior or posterior dislocation. The patient is being brought in for revision hip replacement with a constrained insert and possible increase in neck length. We are however prepared to revise the femoral implant if necessary with a cemented implant. The patient's canal is very small and we had to research thoroughly the previous surgery and we are fortunate enough to be able to use this Erica 10 mm device. We will check it at the time of surgery. PHYSICAL EXAMINATION An elderly white female who is moderately overweight. She walks with a walker. She has no pain in the left hip but complains of a lot of pain in the coccyx. Indeed, she has some bruising over the thoracolumbar area. X-rays of the coccyx and second done in the office yesterday were negative for any fractures. She walks full weightbearing with a walker. As always, she starts crying before she starts talking, quite melodramatic and probably also suffers from depression. She has satisfactory neurovascular status of the left foot. No edema of the left leg. Scar is well-healed over the left hip. There is still a dark purplish discoloration over area about 1 cm at the lower end of the scar (this used to be 4-5 cm in diameter). No pain on range of motion of left hip HEENT: Head normocephalic. Pupils react to light. Face symmetrical. HEART: Regular rhythm. No murmurs. LUNGS: Clear to auscultation ABDOMEN: Soft and supple. Preop work up reveals normal urinalysis and some borderline abnormalities of chemistry. CBC is good. CARDIOLOGY STUDIES EKG shows some changes. I had a [facility] superintendent operations division look at his EKG and compare it to previous EKG and he felt that there was some minor differences but nothing acute. The procedure itself and the potential risks, hazards, complications, expected results have all been discussed. Detailed informed consent documented on the office record and therefore will not be repeated. She is aware that there is no guarantee that it will not dislocate again. the risk of infection, fractures, etc. Informed consent obtained. MD KING Claire/ /6:10 PM /6:24 PM
[~2017-10-03] VITALS: Ht 160 cm; Wt 73.5 kg
[~2017-10-03 10:41] MED LIST changes: -ENOX30P SQ
[2017-10-03] MEDS ORDERED: POVIDONE IODINE 5% (ANTISEPSIS KIT) 4 APPLICATIONS EACH NARE PRN (11:45)
[2017-10-03] MEDS ORDERED: VANCOMYCIN 1250 MG/NS 250 ML (for 70-84 kg) IV SCH ×2 (11:45)
[2017-10-03] MEDS ORDERED: SODIUM CHLORID 0.9% 500 ML IV PRN (11:45)
[2017-10-03] MEDS ORDERED: CHLORHEXIDINE GLUCONATE 2 % 1 PACK (2 CLOTHS) TOPICAL PRN (11:45)
[2017-10-03] MEDS ORDERED: METOPROLOL TARTRATE 25 MG TAB PO PRN (11:45)
[2017-10-03] MEDS ORDERED: LACTATED RINGER'S 1000 ML IV PRN (11:45)
[2017-10-03] MEDS ORDERED: POVIDONE IODINE 7.5% SCRUB 118 ML BOTTLE TOPICAL SCH (11:45)
[2017-10-03] MEDS ORDERED: TRANEXAMIC ACID INJ 735 MG in SODIUM CHLORIDE 0.9% INJ 100 ML IV SCH ×2 (13:00→16:00)
[2017-10-03] MEDS ORDERED: ROPIVACAINE PERI-ARTICULAR INJECTION. P-ARTICULR SCH ×5 (13:00)
[2017-10-03] MEDS ORDERED: ceFAZolin 2 GM PREMIX 50 ML IV SCH (15:00)
[2017-10-03] MEDS ORDERED: GENTAMICIN SULFATE 80 MG/2 ML VIAL ONE (15:26)
[2017-10-03] MEDS ORDERED: NALOXONE HCL 0.4 MG/ML AMP IV PUSH PRN (17:45)
[2017-10-03] MEDS ORDERED: TRANEXAMIC ACID INJ 0 MG in SODIUM CHLORIDE 0.9% INJ 100 ML IV SCH (17:45)
[2017-10-03] MEDS ORDERED: ONDANSETRON HCL 4 MG/2 ML VIAL IVP PRN (17:45)
[2017-10-03] MEDS ORDERED: Post-op Orders (for Pharmacy) MISC XX ONE (17:45)
[2017-10-03] MEDS ORDERED: ACETAMINOPHEN/HYDROcodone 325 MG/5 MG TAB PO PRN ×2 (17:45)
[2017-10-03] MEDS ORDERED: MORPHINE SULFATE 30 MG/30 ML PCA IV SCH (17:45)
[2017-10-03] MEDS ORDERED: diphenhydrAMINE HCL 50 MG/ML VIAL IV PUSH PRN (17:45)
[2017-10-03] MEDS ORDERED: TEMAZEPAM 15 MG CAP PO PRN (17:45)
[2017-10-03] MEDS ORDERED: *morphine SULFATE 8 MG/ML PERIprocedure ONLY ONE (17:53)
[2017-10-03] MEDS ORDERED: DO NOT ADM ANY ANTICOAGULANT DRUGS PRN (18:00)
[2017-10-03] MEDS: SODIUM CHLOR 0.9% 1000 ML INJ 1,000 ML IV SCH (18:06)
[2017-10-03] MEDS ORDERED: *MEPERIDINE 25 MG INJ VIAL PERIprocedural Use ONLY ONE (18:10)
--- NOTE | 2017-10-03 18:45 | RADRPT ---
EXAM DATE/TIME: 10/03/2017 18:02 [place] COMPARISON: HIP LEFT (AP&LAT 2/3VWS) WO AP PELVIS, April 11, 2017, 15:43. INDICATIONS : Left hip post op. MEDICAL HISTORY : None. SURGICAL HISTORY : None. ENCOUNTER: Initial ACUITY: 1 day PAIN SCORE: Non-responsive. LOCATION: Left hip. FINDINGS: A two view examination of the left hip was performed. There is a left total hip arthroplasty cerclag e wires around the proximal femur securing the stem of the femoral prostheses. Interval placement of a SLICK type drain over the hip. No fracture identified. No dislocation. CONCLUSION: 1. Stable radiographic appearance of the left total hip arthroplasty as detailed above. 2. Interval placement of a SLICK type drain over the proximal femur. John Hdz MD on October 03, 2017 at 18:41 Board Certified Radiologist. This report was verified electronically.
[2017-10-03 20:25] VITALS: BP 147/60; PULSE 50; RESP 18; TEMP 97.6; O2SAT 100
[2017-10-03] MEDS: ceFAZolin 2 GM PREMIX 50 ML IV SCH (22:43)
[2017-10-03] MEDS: KETOROLAC TROMETHAMINE 30 MG/ML (IVP) VIAL IVP SCH (22:44)
[2017-10-03] MEDS: ACETAMINOPHEN 1000 MG/100 ML VIAL IV SCH (22:45)
[2017-10-03] MEDS: ALLOPURINOL 100 MG TAB PO SCH (22:45)
[2017-10-03] MEDS: LOSARTAN 50 MG TAB PO SCH (22:45)
[2017-10-03] MEDS: PCA - TOTAL MG MORPHINE DELIVERED PER SHIFT SCH (22:55)
[2017-10-04] VITALS (8 sets, daily range): BP systolic 116–155; BP diastolic 54–70; PULSE 52–72; RESP 18–23; TEMP 96.8–99; O2SAT 92–98
[2017-10-04] MEDS: SODIUM CHLOR 0.9% 1000 ML INJ 1,000 ML IV SCH ×3 (03:43→17:46)
[2017-10-04] MEDS: ceFAZolin 2 GM PREMIX 50 ML IV SCH ×2 (03:43→10:04)
[2017-10-04 05:24] LABS: REVIEW FLAG FINAL
[2017-10-04] MEDS: PCA - TOTAL MG MORPHINE DELIVERED PER SHIFT SCH ×3 (05:28→22:00)
[2017-10-04] MEDS: KETOROLAC TROMETHAMINE 30 MG/ML (IVP) VIAL IVP SCH ×4 (05:28→20:10)
--- NOTE | 2017-10-04 05:48 | MP ---
cc: KRISTEN GUTIÉRREZ DATE OF SURGERY 10/03/2017 PREOPERATIVE DIAGNOSES 1. Recurrent dislocation left total hip. 2. 5-1/2 months post revision total hip replacement left for loose femoral component. POSTOPERATIVE DIAGNOSES 1. Recurrent dislocation left total hip. 2. 5-1/2 months post revision total hip replacement left for loose femoral component. OPERATIVE PROCEDURE Revision hip replacement, left hip, using Constrained polyethylene insert, made by the [employer] and changing the head from 32 ceramic -3 to metal 28-mm standard. SURGEON Dr. Gutiérrez ANESTHESIA General. TECHNIQUE After induction of general anesthesia, the patient was placed in the left lateral position supported with Biomet hip positioners. Strict lateral position was ascertained. The left hip and left lower extremity were thoroughly prepped with alcohol and ChloraPrep and draped in routine fashion. The entire previous surgical incision was used. The surgical scar was used for the surgical incision, deepened through the subcutaneous tissue down to fascia. Limited skin flaps were raised, followed by incision of the fascia through the middle of the greater trochanter. There was serosanguineous fluid which was evacuated. This was to be expected from the recent dislocation. It was clear; it was not purulent. The dissection kept close the posterior margin of the greater trochanter and femur exposing the joint. The inflammatory or synovial tissue from around the hip joint, three pieces were removed from different areas, sent to the lab for Gram's stain and culture, aerobic and anaerobic. Once satisfactory exposure was obtained, the hip was tested. I had the hip in extension, adduction and as much external rotation as a could and it would no come out anteriorly. I had the hip in 90 degrees flexion, abduction and 60-70 degrees of internal rotation and the hip would not come out, so it was really not clear why she was dislocating. That is the reason we want to put in a Constrained insert. The polyethylene insert was pop-topped with the use of an osteotome. The cup was in good shape. The stem was in good shape. It should be noted that once we dislocated we did remove the ceramic head. The acetabulum was cleaned and then a Constrained insert with 28-mm inside diameter was impacted in place. We made sure it bottomed out nicely. The constraining ring was then placed over the Kam taper of the femoral implant and then a 28-mm standard metal head was impacted in place. The plastic insert was cleaned and dried thoroughly; that is in the acetabulum. The hip was now reduced with an audible and palpable pop. The constrained ring was then deployed and seems to fit very nicely. We made sure there was good circumferential deployment of the constrained ring. The hip was tested. There is no impingement in extension, external rotation and abduction. Flexion and adduction to 90 degrees flexion is okay but when we internally rotate her beyond 30 degrees there is impingement of the edge of the insert on the trunnion but in even neutral there is no impingement. This is as stable a hip as we can give her. Even this might eventually wear out over the years. The wound was irrigated saline solution followed by closure of the fascia with #2 Quill, the subcutaneous tissue with 2-0 Vicryl, the skin with 3-0 subcuticular Quill and Steri-Strips. A Hemovac drain was placed in the depths of the incision. Dressing to be applied with long-term superabsorbent dressing over the incision and a Tegaderm on the drain site. The patient was transferred to the recovery room in satisfactory condition with an abduction pillow. The patient tolerated the procedure well. TRANSFUSIONS AND COMPLICATIONS None. POSTOPERATIVE CONDITION Satisfactory. PROGNOSIS Guarded because of her low activity level and lack of muscle tone, etc. MD KING Claire/JANELL /5:22 PM /5:18 AM
[2017-10-04 06:04] LABS: BICARBONATE 27.4 MEQ/L (21.0-32.0); POTASSIUM 4.1 MEQ/L (3.5-5.1)
--- NOTE | 2017-10-04 07:27 | PD.ORT.PN ---
Subjective Post Op Day #: 1 Pain Scale: 2 Subjective Remarks scared Objective Vitals Last 72 hours Impressions Hip X-Ray 10/03/17 0000 Signed Impressions: Service Date/Time: Tuesday, October 03, 2017 18:02 - CONCLUSION: 1. Stable radiographic appearance of the left total hip arthroplasty as detailed above. 2. Interval placement of a SLICK type drain over the proximal femur. John Hdz MD Microbiology Date/Time Source Procedure Growth Status 10/03/17 15:55 Wound Hip Fungal Smear Pending Received 10/03/17 15:55 Wound Hip Fungal Culture Pending Received Vital Signs Date Time Temp Pulse Resp B/P (MAP) Pulse Ox O2 Delivery O2 Flow Rate FiO2 10/04/17 05:28 18 10/04/17 04:30 97.7 58 18 123/60 (81) 97 10/04/17 00:25 97.9 57 18 118/54 (75) 96 10/03/17 22:55 18 10/03/17 20:25 97.6 50 18 147/60 (89) 100 10/03/17 19:00 97.5 54 23 169/72 (104) 98 Nasal Cannula 2 10/03/17 18:45 55 20 162/61 (94) 98 Nasal Cannula 2 10/03/17 18:30 53 20 149/70 (96) 95 Nasal Cannula 2 10/03/17 18:15 58 17 161/70 (100) 99 Nasal Cannula 2 10/03/17 18:06 20 10/03/17 18:00 52 19 153/66 (95) 100 Nasal Cannula 2 10/03/17 17:45 55 24 146/65 (92) 100 Nasal Cannula 2 10/03/17 17:42 97.4 55 24 158/66 (96) 100 Nasal Cannula 2 I/O 10/03/17 10/03/17 10/03/17 10/04/17 10/04/17 10/04/17 07:00 15:00 23:00 07:00 15:00 23:00 Intake Total 1922 ml 1067 ml Output Total 290 ml 40 ml Balance 1632 ml 1027 ml Intake Oral 315 ml 240 ml IV Total 107 ml 827 ml Other 1500 ml Output Drainage Total 40 ml 40 ml Estimated Blood Loss 250 ml # Voids 1 1 0 # Bowel Movements 0 0 Result Diagram: 10/04/17 0453 10/04/17 0453 Objective Remarks comfortable in bed drain out and dresings dry. Moves toes well up and down Abdn pillow on Assessment & Plan Ortho Post Op Day #: 1 Problem List: Assessment and Plan POD 1 revision with constrained insert and longer neck DC with HHC tomorrow Fortino Gutiérrez MD Oct 04, 2017 07:27
[2017-10-04] MEDS ORDERED: TRAM50TA PO (07:32)
--- NOTE | 2017-10-04 07:34 | HHI.FF ---
Face to Face Verification Diagnosis: (1) Status post left hip replacement (2) Hip dislocation, left (3) HTN (hypertension) Physical Therapy Gait training Hip: Total hip, Protocol: Left, Posterior hip precautions Left LE Weight Bearing: WB as tolerated Nursing Nursing: Jayashree owusu I have seen patient Mahsa Day on 10/04/17. My clinical findings support the need for the requested home health care services because: Ltd mobility - disease progression Limited ability to care for self High risk of falls Injectable med education/admin I certify that my clinical findings support that this patient is homebound because: Post-op weakness Unable to use public transportation Fortino Gutiérrez MD Oct 04, 2017 07:34
[2017-10-04] MEDS ORDERED: VANCOMYCIN INJ 1,500 MG in SODIUM CHLOR 0.9% 250 ML INJ 250 ML IV ONE (08:00)
[2017-10-04] MEDS: POTASSIUM CHLORIDE 10 MEQ CONTROLLED RELEASE TAB PO SCH (09:00)
[2017-10-04] MEDS: ALLOPURINOL 100 MG TAB PO SCH ×2 (09:00→20:08)
[2017-10-04] MEDS ORDERED: VITAMIN B COMPLEX/VIT C TAB PO SCH (09:00)
[2017-10-04] MEDS: NIACIN 500 MG EXTENDED RELEASE TAB PO SCH (09:00)
[2017-10-04] MEDS: ATENOLOL 100 MG TAB PO SCH (10:01)
[2017-10-04] MEDS: FUROSEMIDE 40 MG TAB PO SCH (10:02)
[2017-10-04] MEDS: FENOFIBRATE 145 MG TAB PO SCH (10:03)
[2017-10-04] MEDS: LOSARTAN 50 MG TAB PO SCH ×2 (10:03→20:08)
[2017-10-04] MEDS: ASCORBIC ACID 500 MG TAB PO SCH (10:04)
[2017-10-04] MEDS: ACETAMINOPHEN 1000 MG/100 ML VIAL IV SCH ×2 (10:05→20:09)
--- NOTE | 2017-10-04 10:46 | PD.CONS ---
HPI Service [facility] Hospitalists Consult Requested By Dr. Gutiérrez Reason for Consult Medical Management Primary Care Physician Tommy Ralph MD Diagnoses: History of Present Illness Mrs. Day is a pleasant 76 y/o female with HTN, hyperlipidemia, GERD, osteoarthritis who previously had a left total hip replacement in 2013. She underwent revision of left total hip arthroplasty on 04/11/[address] Gutiérrez. Pt has continued to have instability on and off of the left hip and suffered a dislocation in June 2017 and again a few weeks ago. Pt was admitted to [facility] on 10/03/17 and underwent revision hip replacement of the left hip with Dr. Gutiérrez. [facility] Hospitalist team was consulted to help with medical management. Pt is seen post-operatively. She is generally without any specific complaints. Pt reports that this morning she noted a slight rash on her upper chest only. She does have allergy to PCN and was given three doses of Ancef overnight. She feels that this is improving since she noticed it this morning. Pt denies any SOB, swelling, palpitations, cough, chest pain, nausea/vomiting, or abd pain. Review of Systems Constitutional: DENIES: Fever, Chills Eyes: DENIES: Vision loss Ears, nose, mouth, throat: DENIES: Hearing loss Respiratory: DENIES: Cough, Shortness of breath Cardiovascular: DENIES: Chest pain, Palpitations Gastrointestinal: DENIES: Abdominal pain, Constipation, Diarrhea, Nausea, Vomiting Genitourinary: DENIES: Hematuria, Dysuria Musculoskeletal: COMPLAINS OF: Joint pain, DENIES: Back pain, Neck pain Integumentary: DENIES: Rash Neurologic: DENIES: Headache Psychiatric: DENIES: Confusion Past Family Social History Past Medical History HTN Hyperlipidemia Hx of lacunar CVA, noted on MRI in 2005 per the outpt records GERD Fatty liver Diverticulosis Hypercalcemia, follows with Dr. 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 Gutiérrez Left total hip replacement on 07/29/[address] Jain Left first MPJ fusion with plate and screw Left Breast Lumpectomy Axillary Lymphadenectomy Breast biopsy Cholecystectomy Laparoscopic Removal of malignant lesion Cataract Extract With Prosthesis Insert Right Eye Shoulder Arthroscopy, Space Decompression And Acromioplasty Closed Treatment Of Shoulder Dislocation With Manipulation Tonsillectomy With Adenoidectomy Total Abdominal Hysterectomy, abdominal approach Reported Medications -Aspirin EC 81 Mg PO EVERY OTHER DAY -Furosemide 40 Mg PO DAILY -Potassium Chloride ER 10 Meq PO DAILY -Atenolol 100 Mg PO DAILY -Tricor 145 Mg PO DAILY -Losartan 50 Mg PO BID -Allopurinol 100 Mg PO BID Vitamin C (Ascorbic Acid) 1,000 Mg Tablet.er 1,000 Mg PO DAILY Vitamin B Complex (B-Complex Vitamins) 1 Tab 1 Tab PO EVERY OTHER DAY Niacin 500 Mg Tab 1,000 Mg PO DAILY Multiple Vitamin 1 Tab 1 Tab PO DAILY Selenium 200 Mcg Tab 50 Mcg PO DAILY Garlic 100 Mg Tablet 650 Mg PO DAILY Cranberry Urinary Comfort (Vitamins C & E) 1 Cap 1 Cap PO DAILY Fish Oil 1000 mg (Emery-3 Fatty Acids) 300 Mg-1,000 Mg Cap 2 Tab PO 12PM,5PM Allergies: Coded Allergies: zinc (Verified Allergy, Severe, RASH, 10/03/17) FROM ADHESIVE IN TAPE zinc oxide (Verified Allergy, Severe, RASH, 10/03/17) FROM ADHESIVE IN TAPE clindamycin (Verified Allergy, Intermediate, RASH; RESP DISTRESS, 10/03/17 ) penicillin G (Verified Allergy, Mild, RASH AND TONGUE SWELLING, 10/03/17) lorazepam (Verified Adverse Reaction, Severe, RESTLESSNESS, CONFUSION, SEVERE PSYCHOSIS, 10/03/17) SEVERE PSYCHOSIS (07/28/14) Family History Noncontributory Social History - - Never a smoker - No alcohol use - No illicit street drugs Physical Exam Vital Signs Vital Signs Date Time Temp Pulse Resp B/P (MAP) Pulse Ox O2 Delivery O2 Flow Rate FiO2 10/04/17 08:00 96.8 58 18 116/65 (82) 96 10/04/17 05:28 18 10/04/17 04:30 97.7 58 18 123/60 (81) 97 10/04/17 00:25 97.9 57 18 118/54 (75) 96 10/03/17 22:55 18 10/03/17 20:25 97.6 50 18 147/60 (89) 100 10/03/17 19:00 97.5 54 23 169/72 (104) 98 Nasal Cannula 2 10/03/17 18:45 55 20 162/61 (94) 98 Nasal Cannula 2 10/03/17 18:30 53 20 149/70 (96) 95 Nasal Cannula 2 10/03/17 18:15 58 17 161/70 (100) 99 Nasal Cannula 2 10/03/17 18:06 20 10/03/17 18:00 52 19 153/66 (95) 100 Nasal Cannula 2 10/03/17 17:45 55 24 146/65 (92) 100 Nasal Cannula 2 10/03/17 17:42 97.4 55 24 158/66 (96) 100 Nasal Cannula 2 Physical Exam GENERAL: This is a well-nourished, well-developed patient, in no apparent distress. HEENT: Atraumatic. Normocephalic. No temporal or scalp tenderness. No scleral icterus. Airway patent. NECK: Trachea midline, supple, nontender. CARDIO: Regular. RESP: CTA bilaterally. No wheezes, rales, or rhonchi. ABD: +BS, soft, non-tender, nondistended. EXT: Extremities without clubbing, cyanosis, or edema. NEURO: Awake and alert. Motor and sensory grossly within normal limits. Normal speech. Laboratory Laboratory Tests Test 10/04/17 04:53 Hemoglobin 10.6 Hematocrit 33.0 Blood Urea Nitrogen 20 Creatinine 0.92 Random Glucose 100 Calcium Level 9.2 Sodium Level 143 Potassium Level 4.1 Chloride Level 108 Carbon Dioxide Level 27.4 Anion Gap 8 Estimat Glomerular Filtration Rate 59 Date/Time Source Procedure Growth Status 10/03/17 15:55 Wound Hip Fungal Smear Pending Received 10/03/17 15:55 Wound Hip Fungal Culture Pending Received Result Diagram: 10/04/17 0453 10/04/17 0453 Imaging Last Impressions Hip X-Ray 10/03/17 0000 Signed Impressions: Service Date/Time: Tuesday, October 03, 2017 18:02 - CONCLUSION: 1. Stable radiographic appearance of the left total hip arthroplasty as detailed above. 2. Interval placement of a SLICK type drain over the proximal femur. John Hdz MD Assessment and Plan Problem List: (1) Status post left hip replacement ICD Codes: Z96.642 - Status post left hip replacement Status: Acute Plan: Patient is a 76 y/o female with HTN, hyperlipidemia, GERD, osteoarthritis who previously had a left total hip replacement in 2013. She underwent revision of left total hip arthroplasty on 04/11/[address] Gutiérrez. Pt has continued to have instability on and off of the left hip and suffered a dislocation in June 2017 and again a few weeks ago. Pt was admitted to [facility] on 10/03/17 and underwent revision hip replacement of the left hip with Dr. Gutiérrez. s/p Revision left total hip replacement - Post-op pain control per Ortho - IS - PT daily - Constipation precautions - Pt is planned for discharge home with HHC/PT - DVT prophylaxis with Lovenox HTN - Home meds continued - Monitor Hyperlipidemia - Home meds continued GERD - PPI (2) HTN (hypertension) ICD Codes: I10 - HTN (hypertension) Status: Chronic (3) GERD (gastroesophageal reflux disease) ICD Codes: K21.9 - GERD (gastroesophageal reflux disease) Status: Acute (4) Hx of breast cancer ICD Codes: Z85.3 - Hx of breast cancer Status: Acute Assessment and Plan Patient examined. Assessment and plan formulated with Velma Vallecillo PA-C. I agree with the above. s/p hip revision. pt had some hives on ant neck...not itching. no sob probably from the cefazolin...benadryl prn. Velma Vallecillo Oct 04, 2017 10:46 Byron Campos MD Oct 04, 2017 13:58
[2017-10-04] MEDS ORDERED: diphenhydrAMINE HCL ELIXIR 12.5 MG/5 ML CUP PO PRN (12:00)
[2017-10-04] MEDS ORDERED: ENOXAPARIN SODIUM 30 MG/0.3 ML SYRINGE SQ SCH (17:00)
[2017-10-04] MEDS: DOCUSATE SODIUM 100 MG CAP PO SCH (20:09)
[2017-10-05] VITALS: BP 135/67; PULSE 68; RESP 18; TEMP 98.8; O2SAT 98
[2017-10-05] MEDS: SODIUM CHLOR 0.9% 1000 ML INJ 1,000 ML IV SCH ×2 (02:00→08:45)
[2017-10-05 04:00] VITALS: BP 148/69; PULSE 65; RESP 16; TEMP 98.6; O2SAT 97
[2017-10-05] MEDS: KETOROLAC TROMETHAMINE 30 MG/ML (IVP) VIAL IVP SCH (04:05)
[2017-10-05] MEDS: PCA - TOTAL MG MORPHINE DELIVERED PER SHIFT SCH (05:08)
[2017-10-05 05:56] LABS: AUTOMATED NEUTROPHIL # 4.8 TH/MM3 (1.8-7.7); BASOPHIL % 0.3 % (0.0-2.0); EOSINOPHIL # 0.4 TH/MM3 (0-0.4); EOSINOPHIL % 5.3 % (0.0-4.0); HEMATOCRIT 32.9 % (35.0-46.0); HEMO FLAGS DIFF FINAL; LYMPH % 22.3 % (9.0-44.0); LYMPHOCYTE # 1.6 TH/MM3 (1.0-4.8); MEAN CELL VOLUME 88.3 FL (80.0-100.0); MEAN CORPUSCULAR HEMOGLOBIN 27.5 PG (27.0-34.0); MEAN CORPUSCULAR HGB CONC 31.1 % (32.0-36.0); MONO % 4.6 % (0.0-8.0); NEUT % 67.5 % (16.0-70.0); PLATELET COUNT 225 TH/MM3 (150-450); RED BLOOD COUNT 3.72 MIL/MM3 (4.00-5.30); RED CELL DISTRIBUTION WIDTH 15.4 % (11.6-17.2); WHITE BLOOD COUNT 7.1 TH/MM3 (4.0-11.0)
[2017-10-05 06:07] LABS: POTASSIUM 4.2 MEQ/L (3.5-5.1)
[2017-10-05] MEDS ORDERED: ENOX30P SQ (07:35)
[2017-10-05 08:00] VITALS: BP 161/70; PULSE 64; RESP 18; TEMP 97.6; O2SAT 95
[2017-10-05] MEDS: LOSARTAN 50 MG TAB PO SCH (08:41)
[2017-10-05] MEDS: FENOFIBRATE 145 MG TAB PO SCH (08:41)
[2017-10-05] MEDS: FUROSEMIDE 40 MG TAB PO SCH (08:41)
[2017-10-05] MEDS: ALLOPURINOL 100 MG TAB PO SCH (08:41)
[2017-10-05] MEDS: ATENOLOL 100 MG TAB PO SCH (08:41)
[2017-10-05] MEDS: ASCORBIC ACID 500 MG TAB PO SCH (08:41)
[2017-10-05] MEDS: DOCUSATE SODIUM 100 MG CAP PO SCH (08:41)
[2017-10-05] MEDS: ACETAMINOPHEN 1000 MG/100 ML VIAL IV SCH (08:43)
[2017-10-05] MEDS: POTASSIUM CHLORIDE 10 MEQ CONTROLLED RELEASE TAB PO SCH (08:44)
[2017-10-05] MEDS: NIACIN 500 MG EXTENDED RELEASE TAB PO SCH (08:44)
[2017-10-05 09:22] VITALS: O2SAT 95
--- NOTE | 2017-10-05 10:08 | MD ---
cc: KRISTEN CORONA ADMISSION DATE: 10/03/2017 DISCHARGE DATE: 10/05/2017 [place] Visit Search.Discharge Date ADMITTING DIAGNOSIS 1. Unstable total hip, left, (recurrent dislocation). 2. Five and a half months post revision total hip replacement left for a loose femoral component. DISCHARGE DIAGNOSIS 1. Unstable total hip, left, (recurrent dislocation). 2. Five and a half months post revision total hip replacement left for a loose femoral component. BRIEF HISTORY The history consisted of this revision followed two months later by dislocation and then again dislocation about a week ago. The patient is now brought in for this surgery after appropriate preoperative work-up. HOSPITAL COURSE She had revision hip replacement consisting of a change in the femoral component to a standard 28 mm head and the acetabular insert to a constrained insert. The patient has done well with satisfactory postoperative course and very little pain. The incision looks good. Dressing is clean and dry. Home care has been arranged. She is discharged with a prescription for tramadol 50 mg q.i.d. p.r.n. for pain. She has some hydrocodone at home to take as needed. She will have physical therapy also. She will see me in the office on October 15 for follow-up. Her postoperative lab work is all satisfactory. Postoperative x-rays look good. MD KING Claire/SONAM /7:36 AM /9:59 AM
[2017-10-05 12:00] VITALS: BP 166/70; PULSE 70; RESP 18; TEMP 96.9; O2SAT 100
== END 2017-10-05 15:19 | disposition home health service (06) | DRG 468 ==
LOC: HSDI 10:41 → N06A 19:18
PROVIDERS: ADMIT Orthopaedic Surgery; ATTEND Orthopaedic Surgery
PROC: 0SPB0JZ Removal of Synthetic Substitute from Left Hip Joint, Open Approach (ICD-10-PCS; 2017-10-03)
PROC: 0SRB0JA Replacement of Left Hip Joint with Synthetic Substitute, Uncemented, Open Approach (ICD-10-PCS; principal; 2017-10-03 15:05)
DX: M24.452 Recurrent dislocation, left hip (principal); I34.1 Nonrheumatic mitral (valve) prolapse; Z96.642 Presence of left artificial hip joint; I10 Essential (primary) hypertension; E78.5 Hyperlipidemia, unspecified; M16.12 Unilateral primary osteoarthritis, left hip; K21.9 Gastro-esophageal reflux disease without esophagitis; Z85.3 Personal history of malignant neoplasm of breast; Z85.820 Personal history of malignant melanoma of skin; Z86.73 Personal history of transient ischemic attack (TIA), and cerebral infarction without residual deficits; Z88.0 Allergy status to penicillin; Z90.710 Acquired absence of both cervix and uterus
CPT/HCPCS: 73502; 76000; 80048; 83735; 85014; 85018; 85025; 87015; 87070; 87102; 87116; 87176; 87205; 87206; 94150; J0131; J0690; J0735; J1580; J1650; J1885; J2175; J2270; J2795; J3370; J7030; J7050; J7120